=== PATIENT | female | born 2000 | race African-American/Black ===

== ENCOUNTER 2025-01-17 17:05 | Emergency (ER) | payer OTHER ==
[~2025-01-17] VITALS: Ht 160 cm; Wt 61.0 kg
[2025-01-17 17:13] VITALS: O2SAT 98
[2025-01-17 17:14] VITALS: BP 155/86; PULSE 86; RESP 16; TEMP 36.8; O2SAT 100
[2025-01-17 18:45] LABS: CLARITY URINE CLEAR (CLEAR); COLOR URINE YELLOW (YELLOW); GLUCOSE URINE NEGATIVE (NEGATIVE); KETONES URINE 1+ (NEGATIVE); LEUKOCYTE ESTERASE URINE NEGATIVE (NEGATIVE); NITRITE URINE NEGATIVE (NEGATIVE); OCCULT BLOOD URINE TRACE (NEGATIVE); PH URINE 6.0 (4.5-8.0); PROTEIN URINE NEGATIVE (NEGATIVE); SPECIFIC GRAVITY URINE 1.004 (1.005-1.030); UROBILINOGEN URINE 0.2 E.U./dL (0.2-1.0)
[2025-01-17 19:00] LABS: BACTERIA URINE TRACE; RBC URINE 0-2 /hpf (0-2); SQUAMOUS EPITHELIAL CELL URINE 1+ /lpf (RARE/1+); WBC URINE NONE SEEN /hpf (0-2)
== END 2025-01-17 19:38 | disposition left against medical advice (07) ==
LOC: ER 17:05
DX: R30.0 Dysuria (principal); F41.9 Anxiety disorder, unspecified
CPT/HCPCS: 81003; 99283